=== PATIENT | female | born 1995 | race Caucasian/White ===

== ENCOUNTER 2017-02-15 18:16 | Emergency (ER) | payer SELFPAY ==
[2017-02-15 18:23] VITALS: BP 158/90; BMI 31.4
[2017-02-15 20:31] LABS: BILIRUBIN,URINE NEGATIVE (NEGATIVE); BLOOD/HEMOGLOBIN,URINE NEGATIVE (NEGATIVE); GLUCOSE, URINE NEGATIVE (NEGATIVE); KETONES,URINE NEGATIVE (NEGATIVE); LEUKOCYTE ESTERASE ,URINE 1+ (NEGATIVE); NITRITES,URINE NEGATIVE (NEGATIVE); PROTEIN,URINE NEGATIVE (NEGATIVE); UROBILINOGEN,URINE NORMAL (NORMAL)
--- NOTE | 2017-02-15 20:32 | DR.GENAD ---
HPI - PCP Primary Care Physician: ALICIA Kim HPI Comment HPI Comment: HISTORY BELOW. - Complaint/Symptoms Chief Complaint Doctors Comments: LATE PERIOD. HOME TEST POSITIVE. NOW HAVING LOW BACK AND LOWER ABDOMINAL PAIN. NOVAGINAL BLEEDING. Chief Complaint:: PT STATES" I'M HAVING LOWER ABD AND BACK PAIN I TOOK A TEST ON THE 10TH IT POSITIVE" PT DENIES ANY BLEEDING JUST PAIN LAST PERIOD WAS [id number] - Nurses notes reviewed Nurses Notes Review: Yes - Source History Provided: Patient - Mode of Arrival Mode of Arrival: Ambulatory - Timing Onset of Chief Complaint: 02/13/17 Came on: Suddenly - Duration Duration: Constant Duration: Days - Severity Severity: Moderate PMH - PMH Past Medical History: No Past Surgical History: No - Family History History of Family Medical Conditions: No - Social History Alcohol Use: None Do you use any recreational Drugs:: No Lives With: Family Lives Where: Home - infectious screening In the last 2 months have you had wt loss of >10#?: NO Have you had fever, night sweats or hemotysis?: No Have you traveled outside the country in the last 6 months?: No Isolation: Standard ROS - Review of Systems Constitutional: No Symptoms Reported Eyes: No Symptoms Reported ENTM: No Symptoms Reported Respiratoy: No Symptoms Reported Cardiovascular: No Symptoms Reported Gastrointestinal/Abdominal: Abdominal Pain Genitourinary: No Symptoms Reported Neurological: No Symptoms Reported Musculoskeletal: Back Pain Integumentary: No Symptoms Reported Hematologic/Lymphatic: No Symptoms Reported Endocrine: No Symptoms Reported All Other Systems: Reviewed and Negative PE - Vital Signs Vitals: Temperature 98.9 F Pulse Rate 70 Respiratory Rate 18 Blood Pressure 158/90 O2 Sat by Pulse Oximetry 100 - General Limitations: No Limitations General Appearance: Alert - Head Head Exam: Normal Inspection - Eyes Eye exam: Normal Appearance - ENT ENT Exam: Normal External Ear Exam External Ear Exam: Normal External Inspection TM/Canal Exam: Bilateral Normal Nose Exam: Normal Nose Exam Mouth Exam: Normal Inspection Throat Exam: Normal Inspection - Neck Neck Exam: Trachea Midline - Chest Chest Inspection: Symmetric Chest Wall Rise - Respiratory Respiratory Exam: Normal Lung Sounds Bilat Respiratory Exam: Bilateral Clear to Auscultation - Cardiovascular Cardiovascular Exam: Regular Rate, Normal Rhythm, Normal Heart Sounds - Abdominal Exam Abdominal Exam: Normal Bowel Sounds, Soft. negative: Tenderness - Extremities Extremities Exam: Normal Inspection - Back Back Exam: Normal Inspection - Neurologic Neurological Exam: Alert, Oriented X3 - Psychiatric Psychiatric Exam: Normal Affect, Normal Mood - Skin Skin Exam: Normal Color MDM - Differential Diagnosis Differential Diagnosis: ABDOMINAL PAIN, LOW BACK PAIN, UTI Course - Treatment Treatment: SEE ORDERS. - Education/Counseling Education/Counseling: Patient, Education Educated On: Diagnosis, Needs for Follow Up ROR - Labs Reviewed Laboratory Results Reviewed?: Yes Laboratory: HCG, Qual Negative <10 mIU/mL 02/15/17 20:43 Specimen Type Clean catch urine 02/15/17 20:21 Urine Color Yellow (YELLOW) 02/15/17 20:21 Urine Appearance Clear (CLEAR) 02/15/17 20:21 Urine pH 6.0 (5.0 - 8.0) 02/15/17 20:21 Ur Specific [place] 1.020 (1.000-1.030) 02/15/17 20:21 Urine Protein Negative (NEGATIVE) 02/15/17 20:21 Urine Glucose (UA) Negative (NEGATIVE) 02/15/17 20:21 Urine Ketones Negative (NEGATIVE) 02/15/17 20:21 Urine Occult Blood Negative (NEGATIVE) 02/15/17 20:21 Urine Nitrite Negative (NEGATIVE) 02/15/17 20:21 Urine Bilirubin Negative (NEGATIVE) 02/15/17 20:21 Urine Urobilinogen Normal (NORMAL) 02/15/17 20:21 Ur Leukocyte Esterase 1+ (NEGATIVE) 02/15/17 20:21 Urine RBC 0-2 /HPF (NEGATIVE) 02/15/17 20:21 Urine WBC 4-5 /HPF (NEGATIVE) 02/15/17 20:21 Ur Squamous Epith Cells Few /HPF (NEGATIVE) 02/15/17 20:21 Amorphous Sediment Trace /HPF (NEGATIVE) 02/15/17 20:21 Urine Bacteria 1+ /HPF (NEGATIVE) 02/15/17 20:21 Ur Culture Indicated? No/not indicated 02/15/17 20:21 - Diagnosis Discharge Problem: Abdominal pain Qualifiers: Abdominal location: lower abdomen, unspecified Qualified Code(s): R10.30 - Lower abdominal pain, unspecified Back pain Qualifiers: Back pain location: low back pain Chronicity: acute Back pain laterality: bilateral Sciatica presence: without sciatica Qualified Code(s): M54.5 - Low back pain - Discharge Plan Disposition: 01 HOME, SELF-CARE Condition: Stable - Follow ups/Referrals Follow ups/Referrals: [facility],None [Primary Care Provider] - 3 days TUSHAR LIANG [STAFF PHYSICIAN] - 3 days - Instructions Instructions: Abdominal Pain, Adult, [id number] Additional Instructions: RETURN TO ED IF WORSE.
[2017-02-15 20:39] LABS: AMORPHOUS SEDIMENT,UR TRACE /HPF (NEGATIVE); APPEARANCE,URINE CLEAR (CLEAR); BACTERIA,URINE 1+ /HPF (NEGATIVE); COLOR,URINE YELLOW (YELLOW); RBC,URINE 0-2 /HPF (NEGATIVE); SQUAMOUS EPITHELIAL CELL,UR FEW /HPF (NEGATIVE)
[2017-02-15 20:59] LABS: SERUM PREGNANCY TEST, QUAL NEGATIVE <10 mIU/mL
== END 2017-02-15 21:20 | disposition home or self-care (01) ==
LOC: ER 18:16
DX: R10.84 Generalized abdominal pain (principal); M54.5 Low back pain
CPT/HCPCS: 36415; 81001; 84703; 99282